=== PATIENT | female | born 1985 | race African-American/Black ===

== ENCOUNTER 2017-03-12 21:12 | Emergency (ER) | payer OTHER ==
[~2017-03-12] VITALS: Ht 180.3 cm; Wt 118.0 kg
[2017-03-12] MEDS ORDERED: SODIUM CHLORIDE 0.9% 1,000 ML IV ONE (22:51)
[2017-03-12 22:56] LABS: BASOPHILS % 0.2 % (0.0-2.0); EOSINOPHILS % 1.5 % (0.0-5.0); HEMATOCRIT. 33.2 % (36.0-48.0); HEMOGLOBIN. 10.6 g/dL (12.0-16.0); LYMPHOCYTES % 24.5 % (20.0-50.0); MEAN CORPUSCULAR HEMOGLOBIN 25.7 pg (28.0-32.0); MEAN CORPUSCULAR VOLUME 80.9 fL (81.0-99.0); MEAN PLATELET VOLUME 9.8 fl (7.4-10.4); NEUTROPHILS % 66.8 % (40.0-76.0); PLATELET 202 x1000/uL (130-400); RED CELL DISTRIBUTION WIDTH 15.6 % (11.6-14.6)
[2017-03-12 23:21] LABS: CHLORIDE 104 mEq/L (98-107)
[2017-03-12 23:37] LABS: CARBON DIOXIDE 24 mEq/L (21-32)
[2017-03-12 23:44] LABS: B-HCG QUANTITATIVE 36924 mIU/mL (<3)
[2017-03-13] MEDS ORDERED: DEXT 5%/LR + PITOCIN 20UNITS/L 1,000 ML IV ONE
[2017-03-13 01:51] LABS: BASOPHILS % 0.2 % (0.0-2.0); EOSINOPHILS % 1.5 % (0.0-5.0); HEMATOCRIT. 30.4 % (36.0-48.0); HEMOGLOBIN. 9.7 g/dL (12.0-16.0); LYMPHOCYTES % 26.3 % (20.0-50.0); MEAN CORPUSCULAR VOLUME 81.1 fL (81.0-99.0); MEAN PLATELET VOLUME 9.7 fl (7.4-10.4); PLATELET 174 x1000/uL (130-400); RED BLOOD CELL COUNT 3.75 mill/uL (4.2-5.4); RED CELL DISTRIBUTION WIDTH 15.5 % (11.6-14.6)
[2017-03-13] MEDS ORDERED: MISOPROSTOL 200MCG TABLET PO ONE (02:30)
[2017-03-13 06:15] VITALS: BP 111/71
== END 2017-03-13 06:40 | disposition home or self-care (01) ==
LOC: ER 21:36
DX: N93.9 Abnormal uterine and vaginal bleeding, unspecified (principal); F17.210 Nicotine dependence, cigarettes, uncomplicated
CPT/HCPCS: 36415; 76801; 76817; 80053; 84702; 85025; 86850; 86900; 86901; 96361; 96365; 96366; 99285; J7030; Z7610; J2590

== ENCOUNTER 2017-10-20 10:57 | Emergency (ER) | payer OTHER ==
[~2017-10-20] VITALS: Ht 180.3 cm; Wt 122.0 kg
[2017-10-20 11:50] LABS: BASOPHILS % 0.5 % (0.0-2.0); EOSINOPHILS % 3.4 % (0.0-5.0); HEMATOCRIT. 35.3 % (36.0-48.0); HEMOGLOBIN. 11.4 g/dL (12.0-16.0); LYMPHOCYTES % 42.1 % (20.0-50.0); MEAN CORPUSCULAR HEMOGLOBIN 24.2 pg (28.0-32.0); MEAN CORPUSCULAR VOLUME 74.6 fL (81.0-99.0); MEAN PLATELET VOLUME 9.3 fl (7.4-10.4); MONOCYTES % 7.2 % (2.0-8.0); NEUTROPHILS % 46.8 % (40.0-76.0); PLATELET 235 x1000/uL (130-400); RED BLOOD CELL COUNT 4.73 mill/uL (4.2-5.4); RED CELL DISTRIBUTION WIDTH 18.1 % (11.6-14.6)
[2017-10-20 11:55] LABS: CHLORIDE 109 mEq/L (98-107)
[2017-10-20] MEDS ORDERED: KETOROLAC 60MG/2ML VIAL IM ONE (12:00)
[2017-10-20 12:54] VITALS: BP 113/70
== END 2017-10-20 13:40 | disposition home or self-care (01) ==
LOC: ER 11:14
DX: M54.2 Cervicalgia (principal)
CPT/HCPCS: 36415; 80048; 81025; 85025; 96372; 99284; J1885; Z7610

== ENCOUNTER 2018-04-02 08:50 | Emergency (ER) | payer OTHER ==
[~2018-04-02] VITALS: Ht 180.3 cm; Wt 132.1 kg
[2018-04-02] MEDS ORDERED: nyquil (09:09)
[2018-04-02] MEDS ORDERED: dayquil (09:09)
[2018-04-02] MEDS ORDERED: IBUPROFEN 600MG TABLET PO ONE (11:00)
[2018-04-02 11:35] VITALS: BP 120/79
== END 2018-04-02 13:25 | disposition home or self-care (01) ==
LOC: ER 09:24
DX: B34.9 Viral infection, unspecified (principal); R05 Cough; F12.10 Cannabis abuse, uncomplicated; F17.200 Nicotine dependence, unspecified, uncomplicated; Z98.890 Other specified postprocedural states
CPT/HCPCS: 71045; 87804; 99284

== ENCOUNTER 2019-04-24 08:45 | Emergency (ER) | payer MEDICAID, OTHER ==
[~2019-04-24] VITALS: Ht 182.9 cm; Wt 136.0 kg
[~2019-04-24 08:45] MED LIST: dayquil; nyquil
[2019-04-24 09:12] VITALS: BP 140/81
[2019-04-24] MEDS ORDERED: LORAZEPAM 0.5MG TABLET PO ONE (10:45)
== END 2019-04-24 11:06 | disposition home or self-care (01) ==
LOC: ER 08:45
DX: F41.9 Anxiety disorder, unspecified (principal); F43.9 Reaction to severe stress, unspecified; F32.9 Major depressive disorder, single episode, unspecified
CPT/HCPCS: 81025; 99284

== ENCOUNTER 2020-10-03 11:23 | Emergency (ER) | payer MEDICAID, OTHER | END 2020-10-03 12:07 | disposition left against medical advice (07) | LOC: ER 11:23 | DX: Z53.21 Procedure and treatment not carried out due to patient leaving prior to being seen by health care provider (principal) ==

== ENCOUNTER 2021-12-08 08:45 | Emergency (ER) | payer OTHER ==
[~2021-12-08] VITALS: Ht 167.6 cm; Wt 134.0 kg
[2021-12-08] MEDS ORDERED: ACETAMINOPHEN 325MG TABLET PO PRN (09:15)
[2021-12-08 09:31] LABS: CLARITY URINE CLOUDY (CLEAR); COLOR URINE ORANGE (YELLOW); KETONES URINE NEGATIVE (NEGATIVE); LEUKOCYTE ESTERASE URINE TRACE (NEGATIVE); NITRITE URINE NEGATIVE (NEGATIVE); OCCULT BLOOD URINE 3+ (NEGATIVE); PH URINE 5.5 (4.5-8.0); PROTEIN URINE 1+ (NEGATIVE); SPECIFIC GRAVITY URINE 1.031 (1.005-1.030); UROBILINOGEN URINE 0.2 E.U./dL (0.2-1.0)
[2021-12-08 09:35] LABS: BASOPHILS % 0.3 % (0.0-2.0); EOSINOPHILS % 2.8 % (0.0-5.0); HEMATOCRIT. 35.9 % (36.0-48.0); HEMOGLOBIN. 11.7 g/dL (12.0-16.0); LYMPHOCYTES % 44.2 % (20.0-50.0); MEAN CORPUSCULAR HEMOGLOBIN 27.1 pg (28.0-32.0); MEAN PLATELET VOLUME 9.5 fl (7.4-10.4); MONOCYTES % 7.8 % (2.0-8.0); NEUTROPHILS % 44.9 % (40.0-76.0); PLATELET 217 x1000/uL (130-400); RED BLOOD CELL COUNT 4.32 mill/uL (4.2-5.4); RED CELL DISTRIBUTION WIDTH 15.1 % (11.6-14.6)
[2021-12-08 09:42] LABS: PROTHROMBIN TIME 10.7 sec (9.6-11.0)
[2021-12-08 09:45] LABS: CHLORIDE 111 mEq/L (98-107)
[2021-12-08 10:07] LABS: B-HCG QUANTITATIVE < 1 mIU/mL (<3)
[2021-12-08 12:54] VITALS: BP 122/85
== END 2021-12-08 12:56 | disposition home or self-care (01) ==
LOC: ER 08:45
DX: N93.9 Abnormal uterine and vaginal bleeding, unspecified (principal); Z98.890 Other specified postprocedural states
CPT/HCPCS: 36415; 76830; 76856; 80053; 81003; 81025; 84702; 85025; 86850; 86900; 99284

== ENCOUNTER 2022-05-12 08:33 | Emergency (ER) | payer MEDICAID, OTHER ==
[~2022-05-12] VITALS: Ht 182.9 cm; Wt 142.0 kg
[2022-05-12 08:40] VITALS: BP 142/85
[2022-05-12] MEDS ORDERED: LIDOCAINE HCL/PF 1% 10 MG/ML 5ML VIAL INFIL ONE (09:00)
[2022-05-12] MEDS ORDERED: [UNRECOGNIZED DRUG - CODE] TP (10:04)
[2022-05-12] MEDS ORDERED: IBUP-2029 MT (10:29)
== END 2022-05-12 10:44 | disposition home or self-care (01) ==
LOC: ER 08:33
DX: N95.2 Postmenopausal atrophic vaginitis (principal); Z98.890 Other specified postprocedural states
CPT/HCPCS: 81025; 99282; J3490

== ENCOUNTER 2022-08-03 16:38 | Emergency (ER) | payer OTHER ==
[~2022-08-03] VITALS: Ht 180.3 cm; Wt 136.0 kg
[~2022-08-03 16:38] MED LIST changes: +IBUP-2029 MT; +[UNRECOGNIZED DRUG - CODE] TP
[2022-08-03 19:09] VITALS: BP 123/86
== END 2022-08-03 19:13 | disposition home or self-care (01) ==
LOC: ER 16:38
DX: S33.8XXA Sprain of other parts of lumbar spine and pelvis, initial encounter (principal); X58.XXXA Exposure to other specified factors, initial encounter; Y93.89 Activity, other specified; Y92.89 Other specified places as the place of occurrence of the external cause; Y99.8 Other external cause status
CPT/HCPCS: 81025; 99282; Z7610

== ENCOUNTER 2022-11-07 17:04 | Emergency (ER) | payer OTHER ==
[~2022-11-07] VITALS: Ht 180.3 cm; Wt 127.0 kg
[2022-11-07 17:16] VITALS: O2SAT 98
[2022-11-07] MEDS ORDERED: KETOROLAC 60MG/2ML VIAL IM STA (19:19)
[2022-11-07 19:39] LABS: BASOPHILS % 0.2 % (0.0-2.0); EOSINOPHILS % 3.3 % (0.0-5.0); HEMATOCRIT. 34.4 % (36.0-48.0); HEMOGLOBIN. 11.2 g/dL (12.0-16.0); LYMPHOCYTES % 44.4 % (20.0-50.0); MEAN CORPUSCULAR VOLUME 79.6 fL (81.0-99.0); MEAN PLATELET VOLUME 9.1 fl (7.4-10.4); NEUTROPHILS % 44.1 % (40.0-76.0); PLATELET 285 x1000/uL (130-400); RED BLOOD CELL COUNT 4.32 mill/uL (4.2-5.4)
[2022-11-07 19:46] LABS: CHLORIDE 107 mEq/L (98-107)
[2022-11-07 19:48] LABS: HCG SCREEN NEGATIVE
[2022-11-07 21:16] VITALS: BP 130/76; PULSE 76; RESP 20; TEMP 98.1
== END 2022-11-07 21:18 | disposition home or self-care (01) ==
LOC: ER 17:04
DX: R51.9 Headache, unspecified (principal); F12.10 Cannabis abuse, uncomplicated
CPT/HCPCS: 99285; 70450; 80053; 84703; 85025; 36415; 96372; J1885

== ENCOUNTER 2023-11-13 12:24 | Emergency (ER) | payer OTHER ==
[~2023-11-13] VITALS: Ht 177.8 cm; Wt 121.0 kg
[2023-11-13 12:27] VITALS: BP 121/80; PULSE 97; RESP 18; O2SAT 99
[2023-11-13 13:30] VITALS: TEMP 98.2
[2023-11-13] MEDS: ACETAMINOPHEN 325MG TABLET PO ONE (13:30)
[2023-11-13] MEDS ORDERED: LIDO700A15 TP (14:15)
== END 2023-11-13 14:57 | disposition home or self-care (01) ==
LOC: ER 12:24
DX: M79.605 Pain in left leg (principal); F12.10 Cannabis abuse, uncomplicated; Z98.890 Other specified postprocedural states
CPT/HCPCS: 81025; 93971; 99284

== ENCOUNTER 2024-04-10 17:55 | Emergency (ER) | payer MEDICAID, OTHER ==
[~2024-04-10] VITALS: Ht 180.3 cm; Wt 105.0 kg
[~2024-04-10 17:55] MED LIST changes: +LIDO700A15 TP
[2024-04-10 17:56] VITALS: PULSE 112; O2SAT 95
[2024-04-10 17:59] VITALS: BP 133/78; RESP 16; TEMP 98.6; O2SAT 100
[2024-04-10] MEDS ORDERED: PSEU120T56 MT (19:01)
== END 2024-04-10 19:15 | disposition home or self-care (01) ==
LOC: ER 18:01
DX: J06.9 Acute upper respiratory infection, unspecified (principal); B97.89 Other viral agents as the cause of diseases classified elsewhere; I10 Essential (primary) hypertension; F12.90 Cannabis use, unspecified, uncomplicated; Z98.890 Other specified postprocedural states
CPT/HCPCS: 71045; 93005; 99283

== ENCOUNTER 2024-10-15 15:33 | Emergency (ER) | payer MEDICAID, OTHER ==
[~2024-10-15] VITALS: Ht 180.3 cm; Wt 117.0 kg
[~2024-10-15 15:33] MED LIST changes: +LIDO-53 TP; -LIDO700A15 TP; +PSEU120T56 MT
[2024-10-15 15:47] VITALS: O2SAT 99
[2024-10-15 16:05] LABS: BASOPHILS % 0.3 % (0.0-2.0); EOSINOPHILS % 3.1 % (0.0-5.0); HEMATOCRIT. 33.4 % (36.0-48.0); HEMOGLOBIN. 10.6 g/dL (12.0-16.0); LYMPHOCYTES % 34.9 % (20.0-50.0); MEAN PLATELET VOLUME 9.6 fl (7.4-10.4); MONOCYTES % 6.7 % (2.0-8.0); NEUTROPHILS % 55.0 % (40.0-76.0); PLATELET 265 x1000/uL (130-400); RED BLOOD CELL COUNT 4.48 mill/uL (4.2-5.4); RED CELL DISTRIBUTION WIDTH 18.6 % (11.6-14.6)
[2024-10-15 16:19] LABS: CREATININE 1.1 mg/dL (0.6-1.0); UREA NITROGEN BLOOD 16 mg/dL (9-23)
[2024-10-15 17:21] LABS: CLARITY URINE CLEAR (CLEAR); COLOR URINE YELLOW (YELLOW); GLUCOSE URINE NEGATIVE (NEGATIVE); PH URINE 6.0 (4.5-8.0); PROTEIN URINE NEGATIVE (NEGATIVE); SPECIFIC GRAVITY URINE 1.026 (1.005-1.030)
[2024-10-15 17:22] LABS: KETONES URINE NEGATIVE (NEGATIVE); LEUKOCYTE ESTERASE URINE NEGATIVE (NEGATIVE); NITRITE URINE NEGATIVE (NEGATIVE); OCCULT BLOOD URINE NEGATIVE (NEGATIVE); UCG SCREEN NEGATIVE; UROBILINOGEN URINE 1.0 E.U./dL (0.2-1.0)
[2024-10-15 17:23] LABS: UCG KIT LOT# 946166
[2024-10-15 17:56] LABS: ASPARTATE AMINOTRANSFERASE 17 IU/L (<34); BILIRUBIN DIRECT < 0.1 mg/dL (<=3.0); BILIRUBIN TOTAL 0.3 mg/dL (0.1-1.0); PROTEIN TOTAL 7.2 g/dL (6.0-8.3)
[2024-10-15] MEDS ORDERED: DOXY100C5 MT (20:18)
[2024-10-15] MEDS ORDERED: METR-167 MT (20:18)
[2024-10-15] MEDS: CEFTRIAXONE SODIUM 500MG VIAL IM ONE (20:25)
[2024-10-15 20:45] VITALS: BP 138/80; PULSE 76; RESP 16; TEMP 36.8; O2SAT 99
== END 2024-10-15 20:47 | disposition home or self-care (01) ==
LOC: ER 15:33
DX: R10.31 Right lower quadrant pain (principal); R10.32 Left lower quadrant pain; Z79.899 Other long term (current) drug therapy; Z98.890 Other specified postprocedural states; F15.90 Other stimulant use, unspecified, uncomplicated
CPT/HCPCS: 80076; 80048; 81003; 81025; 83690; 85025; 87210; 36415; 76830; 76856; 96372; 99285; J0696; Z7610